=== PATIENT | male | born 1985 | race Caucasian/White ===

== ENCOUNTER 2016-11-29 09:44 | Emergency (ER) | payer SELFPAY ==
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
[2016-11-29] MEDS ORDERED: HYDROmorphone HCL INJ 2 MG/ML VIAL IM ONE (11:03)
[2016-11-29] MEDS ORDERED: methylPREDNISolone SODIUM SUC 125 MG/2 ML VIAL IM ONE (11:03)
[2016-11-29 11:37] VITALS: BP 127/84; TEMP 98.8; O2SAT 97
== END 2016-11-29 11:30 | disposition home or self-care (01) ==
LOC: ER 09:44
DX: G89.29 Other chronic pain (principal); M54.2 Cervicalgia; M54.9 Dorsalgia, unspecified
CPT/HCPCS: 87502; J1170; J2930

== ENCOUNTER 2016-12-05 09:58 | Emergency (ER) | payer OTHER ==
[2016-12-05 10:17] VITALS: TEMP 97.6
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
[2016-12-05] MEDS ORDERED: KETOROLAC TROMETHAMINE INJ 30 MG/ML VIAL IM ONE (10:42)
[2016-12-05] MEDS ORDERED: ORPHENADRINE CITRATE 30 MG/ML AMP IM ONE (10:43)
[2016-12-05 11:08] VITALS: BP 146/92; O2SAT 97
== END 2016-12-05 11:09 | disposition home or self-care (01) ==
LOC: ER 09:58
DX: F07.81 Postconcussional syndrome (principal); M54.2 Cervicalgia; E11.9 Type 2 diabetes mellitus without complications; Z79.899 Other long term (current) drug therapy
CPT/HCPCS: J1885; J2360

== ENCOUNTER 2017-01-07 05:51 | Emergency (ER) | payer OTHER ==
[2017-01-07 06:08] VITALS: BP 146/95; TEMP 97.7; O2SAT 99
[2017-01-07] MEDS ORDERED: ACETAMINOPHEN W/COD #3 TAB 1 EA TAB PO ONE (06:17)
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
== END 2017-01-07 06:34 | disposition home or self-care (01) ==
LOC: ER 05:51
DX: G89.29 Other chronic pain (principal); M54.2 Cervicalgia; M54.9 Dorsalgia, unspecified; Z79.899 Other long term (current) drug therapy

== ENCOUNTER 2017-01-24 19:20 | Emergency (ER) | payer SELFPAY ==
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
[2017-01-24] MEDS ORDERED: KETOROLAC TROMETHAMINE INJ 30 MG/ML VIAL IM ONE (21:44)
[2017-01-24] MEDS ORDERED: ORPHENADRINE CITRATE 30 MG/ML AMP IM ONE (21:45)
[2017-01-24] MEDS ORDERED: predniSONE 10 MG TAB PO ONE (21:45)
[2017-01-24] MEDS ORDERED: HYDROcodone 10MG/APAP 325MG 1 EA TAB PO ONE (21:46)
[2017-01-24 22:24] VITALS: BP 146/94
[2017-01-24 22:30] VITALS: TEMP 98; O2SAT 98
== END 2017-01-24 22:30 | disposition home or self-care (01) ==
LOC: ER 19:20
DX: M62.830 Muscle spasm of back (principal); M62.838 Other muscle spasm; G89.29 Other chronic pain; M54.9 Dorsalgia, unspecified; M54.2 Cervicalgia; Z79.899 Other long term (current) drug therapy
CPT/HCPCS: J1885; J2360; J7512

== ENCOUNTER 2017-01-31 10:43 | Emergency (ER) | payer SELFPAY ==
[2017-01-31 11:08] VITALS: BP 145/92; TEMP 98.7; O2SAT 95
[2017-01-31] MEDS ORDERED: ACETAMINOPHEN W/COD #3 TAB 1 EA TAB PO ONE (12:58)
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
== END 2017-01-31 13:22 | disposition home or self-care (01) ==
LOC: ER 10:43
DX: G89.29 Other chronic pain (principal); M54.5 Low back pain; F41.9 Anxiety disorder, unspecified; Z79.899 Other long term (current) drug therapy

== ENCOUNTER 2017-06-27 17:11 | Emergency (ER) | payer SELFPAY ==
[2017-06-27 18:16] VITALS: TEMP 99.8
--- NOTE | 2017-06-27 18:29 | ED.PDOC ---
History of Present Illness - General Chief Complaint: ENT Problem Stated Complaint: sore throat Time Seen by Provider: 06/27/17 18:23 Source: patient, RN notes reviewed, Vital Signs reviewed Exam Limitations: no limitations - History of Present Illness Initial Comments: Patient comes in with c/o a sore throat that started last night. Hurts to swallow and keeping him awake. + chills and body aches. + ear aches. No fever. No sick contacts. No nausea. Timing/Duration: gradual Severity: moderate EENT Location: throat Prearrival Treatment: no prearrival treatment Improving Factors: nothing Worsening Factors: eating Associated Symptoms: sore throat Allergies/Adverse Reactions: Allergies NO KNOWN ALLERGY Allergy (Verified 01/31/17 11:08) Home Medications: Ambulatory Orders Clonazepam 0.5 mg PO BID #7 tab 12/05/16 Acetaminophen W/ Codeine [Tylenol W/ CODEINE #3] 1 ea PO Q4HR PRN #12 01/07/17 Gabapentin 600 mg PO BID 01/07/17 Acetaminophen W/ Codeine [Tylenol w/Codeine 300-30 mg] 1 tab PO TID PRN #7 tab 01/24/17 Flexeril 01/24/17 Gabapentin 300 mg PO TID #14 cap 01/24/17 Tizanidine HCl 4 mg PO BEDTIME #10 cap 01/24/17 Gabapentin 300 mg PO TID #15 cap 06/27/17 Review of Systems - Review of Systems Constitutional: States: chills, malaise. Denies: fever EENTM: States: ear pain, throat pain. Denies: nose congestion Respiratory: States: no symptoms reported. Denies: cough Cardiology: States: no symptoms reported Gastrointestinal/Abdominal: States: no symptoms reported. Denies: nausea, vomiting Musculoskeletal: States: no symptoms reported Skin: States: no symptoms reported Neurological: States: no symptoms reported Hematologic/Lymphatic: States: swollen glands All other Systems: No Change from Baseline Past Medical History (General) - Patient Medical History Hx Seizures: No Hx Stroke: No Hx Dementia: No Hx Asthma: No Hx of COPD: No Hx Cardiac Disorders: No Hx Congestive Heart Failure: No Hx Pacemaker: No Hx Hypertension: No Hx Thyroid Disease: No Hx Diabetes: Yes Hx Gastroesophageal Reflux: No Hx Renal Disease: No Hx Cancer: No Hx of HIV: No Hx Hepatitis C: No Hx MRSA: No Surgical History: no surgical history - Vaccination History Hx Tetanus, Diphtheria Vaccination: No Hx Influenza Vaccination: No Hx Pneumococcal Vaccination: No - Social History Hx Tobacco Use: No Hx Chewing Tobacco Use: No Hx Alcohol Use: No Hx Substance Use: No Hx Substance Use Treatment: No Hx Depression: No Hx Physical Abuse: No Hx Emotional Abuse: No Hx Suspected Abuse: No - Female History Patient : No Family Medical History - Family History Father Family History: No Known Living Status: Hx Family Hypertension: Yes Mother Family History: No Known Living Status: Still Living Physical Exam - Physical Exam General Appearance: Alert, No apparent distress, Well Developed, Well Groomed, Well Hydrated, Well Nourished Eye Exam: bilateral normal Ear Exam: bilateral ear: auricle normal, canal normal, TM normal Nasal Exam: normal inspection Throat Exam: tonsillar swelling, other - Mildly erythematous pharynx Neck: full range of motion, supple, lymphadenopathy (R), lymphadenopathy (L) Cardiovascular/Respiratory: regular rate, rhythm, no M/R/G, normal breath sounds , no respiratory distress Neurologic: alert, normal mood/affect, oriented x 3 Skin Exam: normal color, warm/dry Comments: Vital Signs 06/27/17 18:13 Temperature 99.8 F H Pulse Rate [ 115 H Left Brachial] Respiratory 20 Rate Blood Pressure 149/91 [Left Arm] O2 Sat by Pulse 97 Oximetry Progress - Progress Progress: 06/27/17 18:59 Patient is out of his Gabapentin which he takes for anxiety. Requesting a script. He takes 300mg TID - Results/Orders Results/Orders: Laboratory Tests 06/27/17 18:39 Group A Strep DNA Negative Departure - Departure Clinical Impression: Prescription refill Pharyngitis Qualifiers: Pharyngitis/tonsillitis etiology: unspecified etiology Qualified Code(s): J02.9 - Acute pharyngitis, unspecified Time of Disposition: 18:59 Disposition: Discharge to Home or Self Care Condition: Good Departure Forms: ED Discharge - Pt. Copy, Patient Portal Self Enrollment Instructions: DI for Pharyngitis/Tonsillopharyngitis -- Adult Diet: resume usual diet Activity: increase activity as tolerated Referrals: Maira Elam NP [Primary Care Provider] - 1-2 Weeks Prescriptions: Gabapentin 300 mg PO TID #15 cap Home Medications: Ambulatory Orders Clonazepam 0.5 mg PO BID #7 tab 12/05/16 Acetaminophen W/ Codeine [Tylenol W/ CODEINE #3] 1 ea PO Q4HR PRN #12 01/07/17 Gabapentin 600 mg PO BID 01/07/17 Acetaminophen W/ Codeine [Tylenol w/Codeine 300-30 mg] 1 tab PO TID PRN #7 tab 01/24/17 Flexeril 01/24/17 Gabapentin 300 mg PO TID #14 cap 01/24/17 Tizanidine HCl 4 mg PO BEDTIME #10 cap 01/24/17 Gabapentin 300 mg PO TID #15 cap 06/27/17
[2017-06-27] MEDS ORDERED: methylPREDNISolone SODIUM SUC 125 MG/2 ML VIAL IM ONE (18:58)
[2017-06-27 19:16] VITALS: BP 145/87; O2SAT 99
== END 2017-06-27 19:16 | disposition home or self-care (01) ==
LOC: ER 17:11
DX: J02.9 Acute pharyngitis, unspecified (principal); F41.9 Anxiety disorder, unspecified; Z79.899 Other long term (current) drug therapy
CPT/HCPCS: 87070; 87651; J2930

== ENCOUNTER 2018-02-28 21:18 | Emergency (ER) | payer SELFPAY ==
[2018-02-28 21:40] VITALS: TEMP 99; O2SAT 98
--- NOTE | 2018-02-28 22:14 | RAD ---
EXAM DESCRIPTION: Cervical Spine,3 Views CLINICAL HISTORY: 32 years Male, neck pain COMPARISON:None. FINDINGS: No fracture. No subluxation. Disc spaces are preserved. Straightening of cervical spine may be positional or due to muscle spasm. Soft tissues are unremarkable. IMPRESSION: Straightening of cervical spine may be positional or due to muscle spasm. Otherwise, no acute osseous abnormality. No fracture or subluxation. Electronically signed by: Vipul Neff MD 02/28/2018 10:13 PM CDT
[2018-02-28] MEDS ORDERED: HYDROcodone 10MG/APAP 325MG 1 EA TAB PO ONE (22:31)
--- NOTE | 2018-02-28 22:36 | ED.PDOC ---
History of Present Illness - General Chief Complaint: Back Pain or Injury Stated Complaint: back pain Time Seen by Provider: 02/28/18 21:25 Source: patient, RN notes reviewed, Vital Signs reviewed Exam Limitations: no limitations - History of Present Illness Initial Comments: Was lifting weights yesterday & earlier today. Began having diffuse neck pain radiating throughout his back. Timing/Duration: 24 hours, changing over time Quality/Severity: moderate Back Pain Location: C-spine, paraspinous muscles Back Pain Radiation: other - arms & legs Method of Injury/Prior Injury: other Improving Factors: nothing Worsening Factors: movement Associated Symptoms: numbness in legs/feet, other - pain in arms & legs Allergies/Adverse Reactions: Allergies NO KNOWN ALLERGY Allergy (Verified 01/31/17 11:08) Home Medications: Ambulatory Orders Gabapentin [Neurontin] 800 mg PO BID #10 tab 02/28/18 Methocarbamol [Robaxin] 750 mg PO BID #10 tab 02/28/18 Review of Systems - Review of Systems Constitutional: States: no symptoms reported. Denies: chills, fever, weakness EENTM: Denies: nose congestion, throat pain Respiratory: Denies: cough, short of breath Cardiology: Denies: chest pain Gastrointestinal/Abdominal: Denies: abdominal pain, nausea Genitourinary: States: no symptoms reported Musculoskeletal: States: see HPI, back pain, muscle stiffness, neck pain Skin: States: no symptoms reported Neurological: States: numbness - diffuse numbness that doesn't follow an anatomic pattern. Denies: weakness Past Medical History (General) - Patient Medical History Hx Seizures: No Hx Stroke: No Hx Dementia: No Hx Asthma: No Hx of COPD: No Hx Cardiac Disorders: No Hx Congestive Heart Failure: No Hx Pacemaker: No Hx Hypertension: No Hx Thyroid Disease: No Hx Diabetes: Yes Hx Gastroesophageal Reflux: No Hx Renal Disease: No Hx Cancer: No Hx of HIV: No Hx Hepatitis C: No Hx MRSA: No Surgical History: no surgical history - Vaccination History Hx Tetanus, Diphtheria Vaccination: No Hx Influenza Vaccination: No Hx Pneumococcal Vaccination: No Immunizations Up to Date: Yes - Social History Hx Tobacco Use: No Hx Chewing Tobacco Use: No Hx Alcohol Use: No Hx Substance Use: No Hx Substance Use Treatment: No Hx Depression: No Hx Physical Abuse: No Hx Emotional Abuse: No Hx Suspected Abuse: No - Female History Patient : No - Triage Comment ED Triage Comment: back pain after lifting weights yesterday, states entire spine hurts and pressure to back, hips and some numbness to legs Family Medical History - Family History Father Family History: No Known Living Status: Hx Family Hypertension: Yes Mother Family History: No Known Living Status: Still Living Physical Exam - Physical Exam General Appearance: Alert, Comfortable, No apparent distress, Well Developed, Well Nourished Neck Exam: full range of motion, normal alignment, normal inspection, painful range of motion, paraspinous muscle tender Back Exam: normal inspection, no CVA tenderness, no vertebral tenderness - full ROM Extremity Exam: no evidence of injury, normal range of motion Neurologic: no motor/sensory deficits, alert, normal mood/affect, oriented x 3 Skin Exam: normal color, warm/dry Progress - Progress Progress: 02/28/18 22:43 Unchanged. Asking to have his gabapentin refilled. Now says he has had this before & his PCP was going to order an MRI but it never got done. Stressed to him he needs to follow up to have that done. - EKG/XRAY/CT XRAY: c-spine - no acute process Departure - Departure Clinical Impression: Neck and shoulder pain Time of Disposition: 22:47 Disposition: Discharge to Home or Self Care Condition: Fair Departure Forms: ED Discharge - Pt. Copy, Patient Portal Self Enrollment Instructions: DI for Neck Pain Prescriptions: Gabapentin [Neurontin] 800 mg PO BID #10 tab Methocarbamol [Robaxin] 750 mg PO BID #10 tab Home Medications: Ambulatory Orders Gabapentin [Neurontin] 800 mg PO BID #10 tab 02/28/18 Methocarbamol [Robaxin] 750 mg PO BID #10 tab 02/28/18
[2018-02-28 22:57] VITALS: BP 147/92
== END 2018-02-28 23:01 | disposition home or self-care (01) ==
LOC: ER 21:18
DX: M54.2 Cervicalgia (principal); M25.519 Pain in unspecified shoulder; E11.9 Type 2 diabetes mellitus without complications

== ENCOUNTER 2018-04-09 13:16 | Emergency (ER) | payer SELFPAY ==
[2018-04-09 13:28] VITALS: BP 137/92; TEMP 99.2; O2SAT 98
[2018-04-09] MEDS ORDERED: KETOROLAC TROMETHAMINE INJ 30 MG/ML VIAL IM ONE (13:39)
[2018-04-09] MEDS ORDERED: HYDROcodone 10MG/APAP 325MG 1 EA TAB PO ONE (13:39)
--- NOTE | 2018-04-09 13:41 | ED.PDOC ---
History of Present Illness - General Chief Complaint: Back Pain or Injury Stated Complaint: back pain Time Seen by Provider: 04/09/18 13:30 Source: patient Exam Limitations: no limitations - History of Present Illness Initial Comments: States he was lifting weights (very heavy) when he felt a pop in his back & fainted from the pain. Since then he has had diffuse lower back pain worsened with sitting. Timing/Duration: days - yesterday Quality/Severity: severe, radiation - none below his back, sharpness Back Pain Location: lumbar spine Method of Injury/Prior Injury: prior injury, other - lifting weights Improving Factors: immobilization Worsening Factors: other - sitting Associated Symptoms: denies symptoms Allergies/Adverse Reactions: Allergies NO KNOWN ALLERGY Allergy (Verified 01/31/17 11:08) Home Medications: Ambulatory Orders Gabapentin [Neurontin] 800 mg PO BID #10 tab 02/28/18 Methocarbamol [Robaxin] 750 mg PO BID #10 tab 02/28/18 Tramadol HCl [Conzip] 100 mg PO Q8HR PRN #12 cap 04/09/18 Review of Systems - Review of Systems Constitutional: States: no symptoms reported Respiratory: States: no symptoms reported Gastrointestinal/Abdominal: States: no symptoms reported Genitourinary: States: no symptoms reported Musculoskeletal: States: see HPI, back pain. Denies: neck pain Skin: States: no symptoms reported Neurological: States: no symptoms reported Past Medical History (General) - Patient Medical History Hx Seizures: No Hx Stroke: No Hx Dementia: No Hx Asthma: No Hx of COPD: No Hx Cardiac Disorders: No Hx Congestive Heart Failure: No Hx Pacemaker: No Hx Hypertension: No Hx Thyroid Disease: No Hx Diabetes: Yes Hx Gastroesophageal Reflux: No Hx Renal Disease: No Hx Cancer: No Hx of HIV: No Hx Hepatitis C: No Hx MRSA: No - Vaccination History Hx Tetanus, Diphtheria Vaccination: No Hx Influenza Vaccination: No Hx Pneumococcal Vaccination: No - Social History Hx Tobacco Use: No Hx Chewing Tobacco Use: No Hx Alcohol Use: No Hx Substance Use: No Hx Substance Use Treatment: No Hx Depression: No Hx Physical Abuse: No Hx Emotional Abuse: No Hx Suspected Abuse: No - Female History Patient : No Family Medical History - Family History Father Family History: No Known Living Status: Hx Family Hypertension: Yes Mother Family History: No Known Living Status: Still Living Physical Exam - Physical Exam General Appearance: Alert, Comfortable, No apparent distress, Other - standing, pacing Neck Exam: full range of motion, normal inspection Cardiovascular/Respiratory: no respiratory distress Back Exam: normal inspection, no CVA tenderness, no vertebral tenderness, decreased range of motion, other - diffuse lower back pain Extremity Exam: no evidence of injury, normal range of motion Neurologic: no motor/sensory deficits, alert, normal mood/affect, oriented x 3 Skin Exam: normal color, warm/dry Progress - Progress Progress: 04/09/18 23:43 He presented here to me in February with a similar story. He says he doesn't remember me. He says he has had an MRI that showed DDD but he had not had one before the February visit. He declines imaging here as he says he knows he needs another MRI. I suspect he is drug seeking but the [facility] aware site doesn't list any recently concerning activity. Nevertheless, he was counseled to see a back doctor for his symptoms & stop lifting weights. Departure - Departure Clinical Impression: Back pain Qualifiers: Back pain location: low back pain Chronicity: unspecified Back pain laterality : bilateral Sciatica presence: without sciatica Qualified Code(s): M54.5 - Low back pain Time of Disposition: 13:42 Disposition: Discharge to Home or Self Care Condition: Fair Departure Forms: ED Discharge - Pt. Copy, Patient Portal Self Enrollment Instructions: DI for Low Back Pain Referrals: Alex Acosta MD [Active Staff] - 04/11/18 Prescriptions: Tramadol HCl [Conzip] 100 mg PO Q8HR PRN #12 cap PRN Reason: Moderate To Severe Pain Home Medications: Ambulatory Orders Gabapentin [Neurontin] 800 mg PO BID #10 tab 02/28/18 Methocarbamol [Robaxin] 750 mg PO BID #10 tab 02/28/18 Tramadol HCl [Conzip] 100 mg PO Q8HR PRN #12 cap 04/09/18
== END 2018-04-09 14:17 | disposition home or self-care (01) ==
LOC: ER 13:16
DX: M54.5 Low back pain (principal); R55 Syncope and collapse; E11.9 Type 2 diabetes mellitus without complications

== ENCOUNTER → 2018-06-29 | Outpatient (CLI) | payer MEDICAID ==
--- NOTE | 2018-06-29 15:15 | RAD ---
EXAM DESCRIPTION: Pelvis x-ray single view CLINICAL HISTORY: 32 years Male, HIP PAIN COMPARISON: None. FINDINGS: Single x-ray view the pelvis shows intact bones of the pelvic ring. No femoral fracture or hip dislocation. Lower L-spine appears unremarkable. Spina bifida occulta at S1 is incidentally noted. Bilateral convexities at the femoral head neck junctions may predispose to impingement. IMPRESSION: Negative for fracture or dislocation. Electronically signed by: Anselmo Lopez MD 06/29/2018 3:14 PM CDT
--- NOTE | 2018-06-29 15:15 | RAD ---
EXAM DESCRIPTION: Hip,Right 2 Views CLINICAL HISTORY: 32 years, Male, HIP PAIN COMPARISON: None TECHNIQUE: AP and frog leg lateral views of the hip FINDINGS: 2 views of the right hip reveal no fracture or dislocation. Bony prominence is seen at the right lateral femoral head neck junction which may. Disposed to femoral acetabular impingement. Clinical correlation recommended. No lytic bone lesion. There is no joint space narrowing observed. IMPRESSION: Negative for fracture or dislocation. Electronically signed by: Anselmo Lopez MD 06/29/2018 3:13 PM CDT
== END ==
LOC: RAD 13:47
PROVIDERS: ATTEND Orthopaedic Surgery
DX: M25.551 Pain in right hip (principal); M25.561 Pain in right knee

== ENCOUNTER → 2018-07-08 | Outpatient (CLI) | payer MEDICAID ==
--- NOTE | 2018-07-08 08:17 | MRI ---
EXAM DESCRIPTION: Lumbar Spine w/o Contrast CLINICAL HISTORY: RADICULOPATHY COMPARISON: None Available. TECHNIQUE: MRI of the lumbar spine is performed according to our usual protocol with axial and sagittal multi sequence imaging. FINDINGS: Sagittal T2 images reveal decreased signal intensity consistent with desiccation of the intervertebral disc at L4-5. There is slight degenerative retrolisthesis of L4 on L5 measuring 2 mm. Posterior annular bulge is present at this level. No prevertebral mass or aneurysm. Lower cord and conus appear normal. Tip of the conus is behind T12-L1. Small rounded lesion is seen near the tip the conus within the thecal sac measuring 6 mm. Exact nature is uncertain. Axial T1 images through the area are inconclusive without definite confirmation of the presence of the lesion. No axial T2 images through the area. Additional images through this area are recommended with pre and postcontrast imaging see if this could represent an enhancing lesion of the nerve roots such as neuroma. Sagittal T1 images reveal benign marrow signal characteristics. Normal T1 signal intensity and appearance of the lower cord and conus. Small 6 mm lesion dorsal to the conus is isointense with the cord on T2 and T1 images. Sagittal STIR images are negative for marrow edema within the vertebral bodies or posterior elements. No paraspinous fluid collection or cystic lesion. Axial T1 and T2-weighted images were obtained to evaluate the disc levels. T12-L1: No posterior annular bulge or herniation. No spinal stenosis or neural foraminal narrowing. Facets appear normal. Normal appearance of the lower cord and conus. L1-2: No posterior annular bulge or herniation. No spinal stenosis or neural foraminal narrowing. Facets appear normal. L2-3: No posterior annular bulge or herniation. No spinal stenosis or neural foraminal narrowing. Facets appear normal. L3-4: No posterior annular bulge or herniation. No spinal stenosis or neural foraminal narrowing. Facets appear normal. L4-5: Moderate diffuse posterior annular bulge is seen with broad-based superimposed midline protrusion extending cephalad behind the lower aspect of L4 vertebral body. This measures 6 mm in AP dimension and 1.9 cm in mediolateral width. No significant spinal stenosis. There is mild bilateral neural foraminal narrowing right greater than left. Mild facet hypertrophic changes are seen with ligamentum flavum thickening causing moderate narrowing of the bilateral subarticular recesses. L5-S1: No posterior annular bulge or herniation. No spinal stenosis or neural foraminal narrowing. Mild facet and ligamentum flavum hypertrophy. Sacrum appears intact. No retroperitoneal mass or aneurysm. IMPRESSION: Moderate diffuse posterior annular bulge at L4-5 with superimposed 6 mm midline disc protrusion extending cephalad behind lower L4. Small nodular 6 mm lesion posterior to the tip of the conus. Additional MR images through this area are recommended including postcontrast imaging. Electronically signed by: Anselmo Lopez MD 07/08/2018 8:16 AM CDT
== END ==
LOC: MRI 07:00
PROVIDERS: ATTEND Emergency Medicine
DX: M54.16 Radiculopathy, lumbar region (principal); M51.26 Other intervertebral disc displacement, lumbar region

== ENCOUNTER 2019-01-07 09:14 | Emergency (ER) | payer MEDICAID, OTHER ==
[2019-01-07] MEDS ORDERED: SULFA/TRIMETH 800/160 (DS) TAB 1 EA TAB PO ONE (09:39)
--- NOTE | 2019-01-07 09:42 | ED.PDOC ---
History of Present Illness - General Chief Complaint: Skin/Abrasion/Tear Stated Complaint: sore to left calf Time Seen by Provider: 01/07/19 09:31 Source: patient Exam Limitations: no limitations - History of Present Illness Initial Comments: the patient is a 33-year-old male presenting to emergency room with a area of central necrosis about 1.5 cm in diameter with some surrounding erythema to the left calf that has been present for about 3-5 days. There is no obvious underlying abscess. clinically this is most consistent witha brown recluse bite. He did not see anything bite him. No abscesses anywhere else. No areas of cellulitis elsewhere. No evidence of sepsis. Severity: mild Improving Factors: nothing Worsening Factors: nothing Associated Symptoms: denies symptoms Allergies/Adverse Reactions: Allergies NO KNOWN ALLERGY Allergy (Verified 01/31/17 11:08) Home Medications: Ambulatory Orders Amitriptyline HCl 50 mg PO QPM #14 tab 01/07/19 Amitriptyline HCl [Amitriptyline Hydrochlori] 25 mg PO BID 01/07/19 Buprenorphine HCl-Naloxone HCl [Zubsolv 8.6-2.1 mg] 2 sub SL BID 01/07/19 Clonazepam 2 mg PO TID 01/07/19 Gabapentin [Neurontin] 800 mg PO TID 01/07/19 Sulfa/Trimeth 800/160 (Ds) Tab [Bactrim DS Tab] 1 ea PO BID #10 tab 01/07/19 Review of Systems - Review of Systems Constitutional: States: malaise EENTM: States: no symptoms reported Respiratory: States: no symptoms reported Cardiology: States: no symptoms reported Gastrointestinal/Abdominal: States: no symptoms reported Genitourinary: States: no symptoms reported Musculoskeletal: States: no symptoms reported Skin: States: see HPI Neurological: States: no symptoms reported Endocrine: States: no symptoms reported All other Systems: No Change from Baseline Past Medical History (General) - Patient Medical History Hx Seizures: No Hx Stroke: No Hx Dementia: No Hx Asthma: No Hx of COPD: No Hx Cardiac Disorders: No Hx Congestive Heart Failure: No Hx Pacemaker: No Hx Hypertension: No Hx Thyroid Disease: No Hx Diabetes: Yes Hx Gastroesophageal Reflux: No Hx Renal Disease: No Hx Cancer: No Hx of HIV: No Hx Hepatitis C: No Hx MRSA: No Surgical History: no surgical history - Vaccination History Hx Tetanus, Diphtheria Vaccination: No Hx Influenza Vaccination: No Hx Pneumococcal Vaccination: No - Social History Hx Tobacco Use: Yes Hx Chewing Tobacco Use: No Hx Alcohol Use: No Hx Substance Use: No Hx Substance Use Treatment: No Hx Depression: No Hx Physical Abuse: No Hx Emotional Abuse: No Hx Suspected Abuse: No - Female History Patient : No Family Medical History - Family History Father Family History: No Known Living Status: Hx Family Hypertension: Yes Mother Family History: No Known Living Status: Still Living Physical Exam - Physical Exam General Appearance: Alert, Comfortable, No apparent distress Eye Exam: bilateral normal Ears, Nose, Throat: hearing grossly normal Neck: full range of motion, supple Respiratory: no respiratory distress, no accessory muscle use Cardiovascular/Chest: normal peripheral pulses, no edema Peripheral Pulses: dorsalis pedis,right: 2+, dorsalis pedis,left: 2+ Gastrointestinal/Abdominal: non tender, soft Rectal Exam: deferred Back Exam: normal inspection Extremity: normal range of motion, no pedal edema, normal capillary refill 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 There does not appear to be any extensive infection however he will be placed on Bactrim twice daily for 5 days to prevent any significant infection from setting in. Assuming this is a brown recluse bite it will likely go ahead and rot out from the inside and then heal up after that. He does need to wash it several times a day with antibacterial soap. He can also cover it with Neosporin and a Band-Aid. We will refill his Elavil at 50 mg daily at bedtime for a couple of weeks as he is just running out of that and he already has an appointment set up with his primary care doctor to get the medication adjusted longer term. ER warnings were given. Departure - Departure Clinical Impression: Brown recluse spider bite Qualifiers: Encounter type: initial encounter Injury intent: accidental or unintentional Qualified Code(s): T63.331A - Toxic effect of venom of brown recluse spider, accidental (unintentional), initial encounter Disposition: Discharge to Home or Self Care Departure Forms: ED Discharge - Pt. Copy, Patient Portal Self Enrollment Instructions: DI for Wound Infection Diet: regular diet Activity: increase activity as tolerated Referrals: Alejandra Jordan DO [Primary Care Provider] - 1-2 Weeks Prescriptions: Amitriptyline HCl 50 mg PO QPM #14 tab Sulfa/Trimeth 800/160 (Ds) Tab [Bactrim DS Tab] 1 ea PO BID #10 tab Home Medications: Ambulatory Orders Amitriptyline HCl 50 mg PO QPM #14 tab 01/07/19 Amitriptyline HCl [Amitriptyline Hydrochlori] 25 mg PO BID 01/07/19 Buprenorphine HCl-Naloxone HCl [Zubsolv 8.6-2.1 mg] 2 sub SL BID 01/07/19 Clonazepam 2 mg PO TID 01/07/19 Gabapentin [Neurontin] 800 mg PO TID 01/07/19 Sulfa/Trimeth 800/160 (Ds) Tab [Bactrim DS Tab] 1 ea PO BID #10 tab 01/07/19 Additional Instructions: the patient is 33-year-old male presenting to the emergency room with what appears to be a brown recluse bite to his left calf. There does not appear to be any extensive infection however he will be placed on Bactrim twice daily for 5 days to prevent any significant infection from setting in. Assuming this is a brown recluse bite it will likely go ahead and rot out from the inside and then heal up after that. He does need to wash it several times a day with antibacterial soap. He can also cover it with Neosporin and a Band-Aid. We will refill his Elavil at 50 mg daily at bedtime for a couple of weeks as he is just running out of that and he already has an appointment set up with his primary care doctor to get the medication adjusted longer term. ER warnings were given.
[2019-01-07 09:44] VITALS: BP 136/90; TEMP 97.9; O2SAT 97
== END 2019-01-07 09:55 | disposition home or self-care (01) ==
LOC: ER 09:14
DX: T63.331A Toxic effect of venom of brown recluse spider, accidental (unintentional), initial encounter (principal); E11.9 Type 2 diabetes mellitus without complications; Z87.891 Personal history of nicotine dependence; Z79.899 Other long term (current) drug therapy

== ENCOUNTER 2019-03-25 14:19 | Emergency (ER) | payer OTHER ==
[2019-03-25] MEDS ORDERED: predniSONE 20 MG TAB PO ONE (15:25)
--- NOTE | 2019-03-25 15:28 | ED.PDOC ---
History of Present Illness - General Chief Complaint: General Stated Complaint: wrist pain Time Seen by Provider: 03/25/19 14:21 Source: patient Exam Limitations: no limitations - History of Present Illness Initial Comments: the patient's 33-year-old male presenting to the emergency room secondary to pain in the radial aspect of his left wrist for the last couple weeks. Pain is made worse with abducting and extending the thumb. No trauma. He does workout regularly. He is neurovascularly intact. No other areas of pain. No deformity. No crepitus. He is neurovascularly intact.additionally the patient has been having some significant insomnia as he has been out of his Elavil Severity: moderate Improving Factors: immobilization Worsening Factors: movement Associated Symptoms: denies symptoms Allergies/Adverse Reactions: Allergies NO KNOWN ALLERGY Allergy (Verified 03/25/19 14:33) Home Medications: Ambulatory Orders Amitriptyline HCl [Amitriptyline Hydrochlori] 25 mg PO BID 01/07/19 Amitriptyline HCl [Amitriptyline Hydrochlori] 50 mg PO QPM #14 tab 01/07/19 Clonazepam 2 mg PO TID 01/07/19 Gabapentin [Neurontin] 800 mg PO TID 01/07/19 Amitriptyline HCl [Elavil 100MG] 100 mg PO QPM PRN #5 tab 03/25/19 Buprenorphine HCl-Naloxone HCl [Suboxone] 1 each PO BID 03/25/19 Meloxicam [Mobic] 15 mg PO DAILY #20 tab 03/25/19 Review of Systems - Review of Systems Constitutional: States: no symptoms reported EENTM: States: no symptoms reported Respiratory: States: no symptoms reported Cardiology: States: no symptoms reported Gastrointestinal/Abdominal: States: no symptoms reported Genitourinary: States: no symptoms reported Musculoskeletal: States: see HPI Skin: States: no symptoms reported Neurological: States: no symptoms reported Endocrine: States: no symptoms reported All other Systems: No Change from Baseline Past Medical History (General) - Patient Medical History Hx Seizures: No Hx Stroke: No Hx Dementia: No Hx Asthma: No Hx of COPD: No Hx Cardiac Disorders: No Hx Congestive Heart Failure: No Hx Pacemaker: No Hx Hypertension: No Hx Thyroid Disease: No Hx Diabetes: Yes Hx Gastroesophageal Reflux: No Hx Renal Disease: No Hx Cancer: No Hx of HIV: No Hx Hepatitis C: No Hx MRSA: No Surgical History: no surgical history - Vaccination History Hx Tetanus, Diphtheria Vaccination: Yes Hx Influenza Vaccination: Yes Hx Pneumococcal Vaccination: No Immunizations Up to Date: Yes - Social History Hx Tobacco Use: Yes Hx Chewing Tobacco Use: No Hx Alcohol Use: No Hx Substance Use: No Hx Substance Use Treatment: No Hx Depression: No Hx Physical Abuse: No Hx Emotional Abuse: No Hx Suspected Abuse: No - Female History Patient : No Family Medical History - Family History Father Family History: No Known Living Status: Hx Family Hypertension: Yes Mother Family History: No Known Living Status: Still Living Physical Exam - Physical Exam General Appearance: Alert, Comfortable, No apparent distress Eye Exam: bilateral normal Ears, Nose, Throat: hearing grossly normal Respiratory: no respiratory distress, no accessory muscle use Cardiovascular/Chest: normal peripheral pulses, no edema Peripheral Pulses: radial,right: 2+, radial,left: 2+ Gastrointestinal/Abdominal: non tender, soft Rectal Exam: deferred Back Exam: no CVA tenderness, no vertebral tenderness Extremity: no pedal edema, normal capillary refill, other - pain over the radial aspect of the left wrist. No crepitus. No deformity. 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 I see no evidence of any fracture or dislocation or significant arthritis on the x-ray. He will be placed in a wrist splint for the next 2-3 weeks. He will be written for Mobic for as needed use for the next couple of weeks. He was given only one dose of prednisone here today due to the fact that he is a diabetic. Additionally he'll be written for 5 days of Elavil for his insomnia. He needs to follow up with his primary care doctor for this. ER warnings were given. Departure - Departure Clinical Impression: De Quervain's tenosynovitis, left Disposition: Discharge to Home or Self Care Condition: Fair Departure Forms: ED Discharge - Pt. Copy, Patient Portal Self Enrollment Diet: regular diet Activity: no exercise Referrals: Alejandra Jordan DO [Primary Care Provider] - 1-2 Weeks Prescriptions: Amitriptyline HCl [Elavil 100MG] 100 mg PO QPM PRN #5 tab PRN Reason: Insomnia Meloxicam [Mobic] 15 mg PO DAILY #20 tab Home Medications: Ambulatory Orders Amitriptyline HCl [Amitriptyline Hydrochlori] 25 mg PO BID 01/07/19 Amitriptyline HCl [Amitriptyline Hydrochlori] 50 mg PO QPM #14 tab 01/07/19 Clonazepam 2 mg PO TID 01/07/19 Gabapentin [Neurontin] 800 mg PO TID 01/07/19 Amitriptyline HCl [Elavil 100MG] 100 mg PO QPM PRN #5 tab 03/25/19 Buprenorphine HCl-Naloxone HCl [Suboxone] 1 each PO BID 03/25/19 Meloxicam [Mobic] 15 mg PO DAILY #20 tab 03/25/19 Additional Instructions: the patient is a 33-year-old male presenting to the emergency room secondary to this appears to be most consistent with a de Quervain's tenosynovitis in early stages on the left. I see no evidence of any fracture or dislocation or significant arthritis on the x-ray. He will be placed in a wrist splint for the next 2-3 weeks. He will be written for Mobic for as needed use for the next couple of weeks. He was given only one dose of prednisone here today due to the fact that he is a diabetic. Additionally he'll be written for 5 days of Elavil for his insomnia. He needs to follow up with his primary care doctor for this. ER warnings were given.
--- NOTE | 2019-03-25 15:48 | RAD ---
EXAM DESCRIPTION: XR Wrist, Left 3 Views CLINICAL HISTORY: 33 years Male, radial pain 2 days COMPARISON: Left hand dated December 22, 2013. FINDINGS: There is no evidence of acute fracture or dislocation or destructive bony lesion. Joint spaces are maintained. The ulnar styloid at appears rather truncated. Regional soft tissues are essentially unremarkable. No significant interval change is seen. IMPRESSION: Unremarkable left wrist. Electronically signed by: Brandon Schmidt MD 03/25/2019 3:46 PM CDT
[2019-03-25 15:49] VITALS: BP 140/90; TEMP 97; O2SAT 97
== END 2019-03-25 15:40 | disposition home or self-care (01) ==
LOC: ER 14:19
DX: M65.4 Radial styloid tenosynovitis [de Quervain] (principal); G47.00 Insomnia, unspecified; E11.9 Type 2 diabetes mellitus without complications; Z79.899 Other long term (current) drug therapy; Z87.891 Personal history of nicotine dependence
CPT/HCPCS: 73110; J7512

== ENCOUNTER 2019-09-24 12:19 | Emergency (ER) | payer OTHER ==
[2019-09-24 12:38] VITALS: BP 117/76; TEMP 97.3; O2SAT 92
[2019-09-24] MEDS ORDERED: AMOXICILLIN & POT CLAVULANATE 875 MG TAB PO ONE (12:49)
--- NOTE | 2019-09-24 12:52 | ED.PDOC ---
History of Present Illness - General Chief Complaint: Dental/Mouth Stated Complaint: R upper tooth/jaw pain Time Seen by Provider: 09/24/19 12:49 Source: patient Exam Limitations: no limitations - History of Present Illness Initial Comments: the patient is a 34-year-old male presenting to emergency room secondary to what appears to be a right most posterior maxillary molardental root infection that appears to be causing something of a maxillary sinusitis. Symptoms have worsened over the last few days with increased sinus pressure and pressurethat he is feeling around the eye and towards the ear. No obvious facial cellulitis. Tympanic membranes clear. No obvious abscess. He has had the dental problem for more than a month. He is having a hard time finding a dentist and takes Medicaid. Timing/Duration: unsure Severity: moderate Improving Factors: nothing Worsening Factors: nothing Associated Symptoms: malaise Allergies/Adverse Reactions: Allergies NO KNOWN ALLERGY Allergy (Verified 09/24/19 12:38) Home Medications: Ambulatory Orders Amitriptyline HCl [Amitriptyline Hydrochlori] 25 mg PO BID 01/07/19 Amitriptyline HCl [Amitriptyline Hydrochlori] 50 mg PO QPM #14 tab 01/07/19 Clonazepam 2 mg PO TID 01/07/19 Gabapentin [Neurontin] 800 mg PO TID 01/07/19 Amitriptyline HCl [Elavil 100MG] 100 mg PO QPM PRN #5 tab 03/25/19 Buprenorphine HCl-Naloxone HCl [Suboxone] 1 each PO BID 03/25/19 Meloxicam [Mobic] 15 mg PO DAILY #20 tab 03/25/19 Amoxicillin & Pot Clavulanate [Augmentin Tab] 875 mg PO BID #20 tab 09/24/19 Tramadol HCl 50 mg PO Q8HR PRN #10 tab 09/24/19 Review of Systems - Review of Systems Constitutional: States: malaise EENTM: States: mouth pain Respiratory: States: no symptoms reported Cardiology: States: no symptoms reported Gastrointestinal/Abdominal: States: no symptoms reported Genitourinary: States: no symptoms reported Musculoskeletal: States: no symptoms reported Skin: States: no symptoms reported Neurological: States: no symptoms reported Endocrine: States: no symptoms reported All other Systems: No Change from Baseline Past Medical History (General) - Patient Medical History Hx Seizures: No Hx Stroke: No Hx Dementia: No Hx Asthma: No Hx of COPD: No Hx Cardiac Disorders: No Hx Congestive Heart Failure: No Hx Pacemaker: No Hx Hypertension: Yes Hx Thyroid Disease: No Hx Diabetes: Yes Hx Gastroesophageal Reflux: No Hx Renal Disease: No Hx Cancer: No Hx of HIV: No Hx Hepatitis C: No Hx MRSA: No Surgical History: no surgical history - Vaccination History Hx Tetanus, Diphtheria Vaccination: No Hx Influenza Vaccination: No Hx Pneumococcal Vaccination: No - Social History Hx Tobacco Use: Yes Hx Chewing Tobacco Use: No Hx Alcohol Use: No Hx Substance Use: No Hx Substance Use Treatment: No Hx Depression: No Hx Physical Abuse: No Hx Emotional Abuse: No Hx Suspected Abuse: No - Female History Patient is a Female of Child Bearing Age (10 -59 yrs old): No Patient : No Family Medical History - Family History Father Family History: No Known Living Status: Hx Family Hypertension: Yes Mother Family History: No Known Living Status: Still Living Physical Exam - Physical Exam General Appearance: Alert, Comfortable, No apparent distress Eye Exam: bilateral normal Ears, Nose, Throat: hearing grossly normal, nasal congestion, other - oor dentition. See history of present illness. 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 The patient was placed on Augmentin. Will be written for some tramadol for as needed use. Motrin will also help with discomfort along with topical Orajel for the tooth. He does need to find a dentist. ER warnings were given. Keep routine follow-up with primary care doctor. rah [email or web address] [id number] Departure - Departure Clinical Impression: Maxillary sinusitis, acute, Chronic dental pain Disposition: Discharge to Home or Self Care Condition: Fair Departure Forms: ED Discharge - Pt. Copy, Patient Portal Self Enrollment Instructions: DI for Dental Pain Diet: regular diet Activity: increase activity as tolerated Referrals: Alejandra Jordan DO [Primary Care Provider] - 1-2 Weeks Prescriptions: Tramadol HCl 50 mg PO Q8HR PRN #10 tab PRN Reason: Moderate Pain Amoxicillin & Pot Clavulanate [Augmentin Tab] 875 mg PO BID #20 tab Home Medications: Ambulatory Orders Amitriptyline HCl [Amitriptyline Hydrochlori] 25 mg PO BID 01/07/19 Amitriptyline HCl [Amitriptyline Hydrochlori] 50 mg PO QPM #14 tab 01/07/19 Clonazepam 2 mg PO TID 01/07/19 Gabapentin [Neurontin] 800 mg PO TID 01/07/19 Amitriptyline HCl [Elavil 100MG] 100 mg PO QPM PRN #5 tab 03/25/19 Buprenorphine HCl-Naloxone HCl [Suboxone] 1 each PO BID 03/25/19 Meloxicam [Mobic] 15 mg PO DAILY #20 tab 03/25/19 Amoxicillin & Pot Clavulanate [Augmentin Tab] 875 mg PO BID #20 tab 09/24/19 Tramadol HCl 50 mg PO Q8HR PRN #10 tab 09/24/19 Additional Instructions: the patient's of 34-year-old male presenting to the emergency room secondary to what appears to be a right maxillary sinusitis likely caused by a dental root infection from a infected dental caries. The patient was placed on Augmentin. Will be written for some tramadol for as needed use. Motrin will also help with discomfort along with topical Orajel for the tooth. He does need to find a dentist. ER warnings were given. Keep routine follow-up with primary care doctor.
== END 2019-09-24 13:00 | disposition home or self-care (01) ==
LOC: ER 12:19
DX: J01.00 Acute maxillary sinusitis, unspecified (principal); K02.9 Dental caries, unspecified; K04.7 Periapical abscess without sinus; G89.29 Other chronic pain; E11.9 Type 2 diabetes mellitus without complications; I10 Essential (primary) hypertension; Z87.891 Personal history of nicotine dependence; Z79.899 Other long term (current) drug therapy

== ENCOUNTER 2020-03-30 12:36 | Emergency (ER) | payer OTHER ==
--- NOTE | 2020-03-30 13:09 | ED.PDOC ---
History of Present Illness - General Time Seen by Provider: 03/30/20 12:55 Source: patient Exam Limitations: no limitations - History of Present Illness Initial Comments: The patient is a 34-year-old male presented emergency room primarily due to a 1/2 inch fairly superficial laceration between the eyebrows that the patient sustained from the kickback of a rifle scope while shooting. No loss of consciousness. No vision changes. No altered mental status. It happened about 45 minutes to 1 hour prior to my visit. No blood thinners. He is concerned that it may need a stitch. There is no gape to the wound. It does not need suturing. Additionally the patient has multiple areas of cellulitis to bilateral lower extremities he reports it is been present for about the past for 5 days after he got into some stickers and possibly some poison alonso. No evidence of any abscess formation. No evidence of any sepsis. The patient is a diet-controlled type II diabetic. Blood sugar here, even after eating was 154. Additionally the patient reports some insomnia as he is run out of his Elavil that he normally takes. Severity: moderate Improving Factors: nothing Worsening Factors: nothing Associated Symptoms: denies symptoms Allergies/Adverse Reactions: Allergies NO KNOWN ALLERGY Allergy (Verified 09/24/19 12:38) Home Medications: Ambulatory Orders Clonazepam 2 mg PO TID 01/07/19 Gabapentin [Neurontin] 800 mg PO TID 01/07/19 Amitriptyline HCl [Elavil 100MG] 100 mg PO QPM PRN #5 tab 03/25/19 Buprenorphine HCl-Naloxone HCl [Suboxone] 1 each PO BID 03/25/19 Meloxicam [Mobic] 15 mg PO DAILY #20 tab 03/25/19 Amitriptyline HCl 75 mg PO QPM #2 tab 03/30/20 Sulfa/Trimeth 800/160 (Ds) Tab [Bactrim DS Tab] 1 ea PO BID #10 tab 03/30/20 predniSONE [Prednisone] 20 mg PO DAILY #3 tab 03/30/20 Review of Systems - Review of Systems Constitutional: States: no symptoms reported EENTM: States: no symptoms reported Respiratory: States: no symptoms reported Cardiology: States: no symptoms reported Gastrointestinal/Abdominal: States: no symptoms reported Genitourinary: States: no symptoms reported Musculoskeletal: States: no symptoms reported Skin: States: see HPI Neurological: States: no symptoms reported Endocrine: States: no symptoms reported All other Systems: No Change from Baseline Past Medical History (General) - Patient Medical History Hx Seizures: No Hx Stroke: No Hx Dementia: No Hx Asthma: No Hx of COPD: No Hx Cardiac Disorders: No Hx Congestive Heart Failure: No Hx Pacemaker: No Hx Hypertension: Yes Hx Thyroid Disease: No Hx Diabetes: Yes Hx Gastroesophageal Reflux: No Hx Renal Disease: No Hx Cancer: No Hx of HIV: No Hx Hepatitis C: No Hx MRSA: No - Vaccination History Hx Tetanus, Diphtheria Vaccination: No Hx Influenza Vaccination: No Hx Pneumococcal Vaccination: No - Social History Hx Tobacco Use: Yes Hx Chewing Tobacco Use: No Hx Alcohol Use: No Hx Substance Use: No Hx Substance Use Treatment: No Hx Depression: No Hx Physical Abuse: No Hx Emotional Abuse: No Hx Suspected Abuse: No - Female History Patient : No Family Medical History - Family History Father Family History: No Known Living Status: Hx Family Hypertension: Yes Mother Family History: No Known Living Status: Still Living Physical Exam - Physical Exam General Appearance: Alert, Comfortable, No apparent distress Eye Exam: bilateral normal Ears, Nose, Throat: normal ENT inspection Neck: non-tender, supple Respiratory: no respiratory distress, no accessory muscle use Cardiovascular/Chest: normal peripheral pulses, no edema Peripheral Pulses: radial,right: 2+, radial,left: 2+, dorsalis pedis,right: 2+, dorsalis pedis,left: 2+ Gastrointestinal/Abdominal: non tender, soft Rectal Exam: deferred Extremity: no pedal edema, no calf tenderness, normal capillary refill Neurologic: rabbit fancier II-XII nml as tested, alert, normal mood/affect, oriented x 3 Skin Exam: other - The patient has numerous areas of scratches and mild cellulitis surrounding the scratches to bilateral lower extremities below the knee. No abscess formation. No lacerations or require repair. Comments: Vital Signs - 24 hr 03/30/20 13:01 Temperature 98.7 F Pulse Rate [ 98 H Right Radial] Respiratory 18 Rate Blood Pressure 129/95 [Right Arm] O2 Sat by Pulse 95 Oximetry Progress - Progress Progress: 03/30/20 13:10 The patient is a 34-year-old male presented emergency room secondary to the development of an accidental laceration between eyebrows today. No evidence of concussion or altered mental status. The laceration was cleaned with hydrogen peroxide and will not require any suture repair. He needs to keep it covered with an antibiotic ointment and a Band-Aid. Additionally the patient has several areas of developing cellulitis of bilateral lower extremities related to recent scratches and possibly poison alonso. The patient will be placed on Bactrim twice daily for the next 5 days. Additionally he will be written for 3 days of oral prednisone. He is to take the prednisone in the morning to prevent any sleep disturbance. Additionally the patient does have insomnia problems. He will be written for 2 tablets of Elavil to be used over the next couple of days until he can get his regular prescription filled on Wednesday. [email or web address] [email or web address] [id number] Departure - Departure Clinical Impression: Cellulitis of leg without foot, Accidental laceration Insomnia Qualifiers: Insomnia type: unspecified Qualified Code(s): G47.00 - Insomnia, unspecified Disposition: Discharge to Home or Self Care Condition: Fair Instructions: DI for Wound Infection Diet: diabetic diet Activity: increase activity as tolerated Referrals: Alejandra Jordan DO [Primary Care Provider] - 1-2 Weeks Prescriptions: Amitriptyline HCl 75 mg PO QPM #2 tab predniSONE [Prednisone] 20 mg PO DAILY #3 tab Sulfa/Trimeth 800/160 (Ds) Tab [Bactrim DS Tab] 1 ea PO BID #10 tab Home Medications: Ambulatory Orders Clonazepam 2 mg PO TID 01/07/19 Gabapentin [Neurontin] 800 mg PO TID 01/07/19 Amitriptyline HCl [Elavil 100MG] 100 mg PO QPM PRN #5 tab 03/25/19 Buprenorphine HCl-Naloxone HCl [Suboxone] 1 each PO BID 03/25/19 Meloxicam [Mobic] 15 mg PO DAILY #20 tab 03/25/19 Amitriptyline HCl 75 mg PO QPM #2 tab 03/30/20 Sulfa/Trimeth 800/160 (Ds) Tab [Bactrim DS Tab] 1 ea PO BID #10 tab 03/30/20 predniSONE [Prednisone] 20 mg PO DAILY #3 tab 03/30/20 Additional Instructions: The patient is a 34-year-old male presented emergency room secondary to the development of an accidental laceration between eyebrows today. No evidence of concussion or altered mental status. The laceration was cleaned with hydrogen peroxide and will not require any suture repair. He needs to keep it covered with an antibiotic ointment and a Band-Aid. Additionally the patient has several areas of developing cellulitis of bilateral lower extremities related to recent scratches and possibly poison alonso. The patient will be placed on Bactrim twice daily for the next 5 days. Additionally he will be written for 3 days of oral prednisone. He is to take the prednisone in the morning to prevent any sleep disturbance. Additionally the patient does have insomnia problems. He will be written for 2 tablets of Elavil to be used over the next couple of days until he can get his regular prescription filled on Wednesday.
[2020-03-30 13:38] VITALS: BP 131/81; TEMP 98.2; O2SAT 98
== END 2020-03-30 13:32 | disposition home or self-care (01) ==
LOC: ER 12:36
DX: S01.81XA Laceration without foreign body of other part of head, initial encounter (principal); G47.00 Insomnia, unspecified; L03.116 Cellulitis of left lower limb; L03.115 Cellulitis of right lower limb; E11.9 Type 2 diabetes mellitus without complications; I10 Essential (primary) hypertension; F17.200 Nicotine dependence, unspecified, uncomplicated; W22.8XXA Striking against or struck by other objects, initial encounter; Y92.9 Unspecified place or not applicable